=== PATIENT | male | born 1965 | race Caucasian/White ===

== ENCOUNTER 2024-05-27 16:01 | Emergency (ER) | payer OTHER, MEDICAID ==
[~2024-05-27] VITALS: Ht 162.6 cm; Wt 70.0 kg
[2024-05-27 19:16] VITALS: BP 184/90; TEMP 97.2; O2SAT 99
== END 2024-05-27 19:26 | disposition home or self-care (01) ==
LOC: M ED 16:01
DX: Z11.52 Encounter for screening for COVID-19 (principal); B34.1 Enterovirus infection, unspecified

== ENCOUNTER 2024-10-06 11:56 | Emergency (ER) | payer OTHER, MEDICAID ==
[~2024-10-06] VITALS: Ht 170.2 cm; Wt 65.4 kg
[2024-10-06] MEDS: LIDOCAINE 2% 5ML JELLY UROJET TOP ONE (12:52)
[2024-10-06 13:17] LABS: BASO % 0.3 % (0.0-1.0); EOS % 0.2 % (0.0-3.0); HEMATOCRIT 46.1 % (42.0-52.0); HEMOGLOBIN 15.1 g/dl (13.5-17.5); LYMPH # 1.9 10^3/uL (1.5-5.0); LYMPH % 16.6 % (24.0-44.0); MEAN CORPUSCULAR HEMOGLOBIN 29.1 pg (27.0-33.0); MEAN CORPUSCULAR HGB CONC 32.8 g/dl (32.0-36.5); MEAN CORPUSCULAR VOLUME 88.8 fl (80.0-96.0); MONO # 0.6 10^3/uL (0.0-0.8); MONO % 5.1 % (2.0-8.0); NEUTROPHILS % 77.5 % (36.0-66.0); PLATELET COUNT, AUTOMATED 278 10^3/uL (150-450); RED BLOOD COUNT 5.19 10^6/uL (4.30-6.10); WHITE BLOOD COUNT 11.6 10^3/uL (4.0-10.0)
[2024-10-06 13:18] LABS: BLOOD UREA NITROGEN 23 MG/DL (9-23); CALCIUM LEVEL 9.9 MG/DL (8.5-10.1); CARBON DIOXIDE LEVEL 28 MMOL/L (20-31); CHLORIDE LEVEL 106 MMOL/L (98-107); CREATININE FOR GFR 0.92 MG/DL (0.70-1.30); GLOMERULAR FILTRATION RATE > 60.0 (>56); GLUCOSE, FASTING 94 MG/DL (60-100); POTASSIUM SERUM 4.3 MMOL/L (3.5-5.1); SODIUM LEVEL 143 MMOL/L (136-145)
[2024-10-06 13:52] LABS: APPEARANCE, URINE CLEAR (CLEAR); BACTERIA, URINE AUTO NEGATIVE (NEGATIVE); BILIRUBIN, URINE AUTO NEGATIVE (NEGATIVE); BLOOD, URINE BLOOD 1+ (NEGATIVE); COLOR, URINE YELLOW (YELLOW); GLUCOSE, URINE (UA) AUTO NEGATIVE (NEGATIVE); KETONE, URINE AUTO TRACE mg/dL (NEGATIVE); LEUKOCYTE ESTERASE, URINE AUTO NEGATIVE (NEGATIVE); MUCUS, URINE SMALL (NEGATIVE); NITRITE, URINE AUTO NEGATIVE (NEGATIVE); PROTEIN, URINE AUTO NEGATIVE (NEGATIVE); RBC, URINE AUTO 27 /HPF (0-3); SPECIFIC GRAVITY URINE AUTO 1.021 (1.002-1.035); SQUAMOUS EPITHELIAL CELL UR AU 0 /HPF (0-6); UROBILINOGEN, URINE AUTO 0.2 mg/dL (0.0-2.0); WBC, URINE AUTO 2 /HPF (0-3)
[2024-10-06] MEDS ORDERED: FLOM0.4C39 PO (18:14)
[2024-10-06 18:56] VITALS: BP 180/90; TEMP 97.8; O2SAT 99
== END 2024-10-06 18:56 | disposition home or self-care (01) ==
LOC: M ED 11:56
DX: N40.0 Benign prostatic hyperplasia without lower urinary tract symptoms (principal); R33.8 Other retention of urine; F17.210 Nicotine dependence, cigarettes, uncomplicated

== ENCOUNTER 2024-10-11 18:05 | Emergency (ER) | payer OTHER, MEDICAID ==
[~2024-10-11] VITALS: Ht 170.2 cm; Wt 65.7 kg
[~2024-10-11 18:05] MED LIST: FLOM0.4C39 PO
[2024-10-11 18:13] VITALS: TEMP 98.7
[2024-10-11 20:43] LABS: KETONE, URINE AUTO RFX NEGATIVE (NEGATIVE); NITRITE, URINE AUTO RFX NEGATIVE (NEGATIVE); RBC, URINE AUTO RFX 58 /HPF (0-3); SQUAM EPITHELIAL CELL UR AURFX 0 /HPF (0-6); WBC, URINE AUTO RFX 10 /HPF (0-3)
[2024-10-11 20:46] LABS: LEUKOCYTE ESTERASE UR AUTO RFX TRACE (NEGATIVE)
[2024-10-11 23:31] VITALS: BP 195/91; O2SAT 98
[2024-10-11] MEDS: amLODIPine 5 MG TAB PO ONE (23:31)
== END 2024-10-11 23:46 | disposition home or self-care (01) ==
LOC: M ED 18:05
DX: I10 Essential (primary) hypertension (principal); T83.092A Other mechanical complication of nephrostomy catheter, initial encounter; F17.210 Nicotine dependence, cigarettes, uncomplicated

== ENCOUNTER 2024-10-30 22:44 | Emergency (ER) | payer OTHER, MEDICAID ==
[~2024-10-30] VITALS: Ht 175.3 cm; Wt 63.9 kg
[2024-10-31 00:35] LABS: KETONE, URINE AUTO RFX TRACE mg/dL (NEGATIVE); MUCUS, URINE RFX SMALL (NEGATIVE); NITRITE, URINE AUTO RFX NEGATIVE (NEGATIVE); RBC, URINE AUTO RFX 38 /HPF (0-3); SQUAM EPITHELIAL CELL UR AURFX 0 /HPF (0-6); TRANSITIONAL EPITHELIAL AU RFX 1 /HPF
[2024-10-31 00:47] LABS: LEUKOCYTE ESTERASE UR AUTO RFX 2+ (NEGATIVE); WBC, URINE AUTO RFX TNTC /HPF (0-3)
[2024-10-31 02:19] VITALS: BP 179/95; TEMP 98.1; O2SAT 100
== END 2024-10-31 02:20 | disposition home or self-care (01) ==
LOC: M ED 22:44
DX: R33.9 Retention of urine, unspecified (principal); N40.0 Benign prostatic hyperplasia without lower urinary tract symptoms; Z88.1 Allergy status to other antibiotic agents; Z79.899 Other long term (current) drug therapy

== ENCOUNTER 2024-11-01 11:35 | Emergency (ER) | payer OTHER, MEDICAID ==
[~2024-11-01] VITALS: Ht 175.3 cm; Wt 62.4 kg
[2024-11-01 14:15] VITALS: BP 184/98; TEMP 97.3; O2SAT 99
== END 2024-11-01 14:20 | disposition home or self-care (01) ==
LOC: EDBD 11:35 → M ED 11:35
DX: T83.091A Other mechanical complication of indwelling urethral catheter, initial encounter (principal); I10 Essential (primary) hypertension; N40.0 Benign prostatic hyperplasia without lower urinary tract symptoms; Z88.1 Allergy status to other antibiotic agents; Z79.899 Other long term (current) drug therapy

== ENCOUNTER → 2024-12-01 | Outpatient (CLI) | payer OTHER, MEDICAID ==
[2024-12-01 15:52] LABS: HEMATOCRIT 37.4 % (42.0-52.0); HEMOGLOBIN 12.2 g/dl (13.5-17.5); MEAN CORPUSCULAR HEMOGLOBIN 29.2 pg (27.0-33.0); MEAN CORPUSCULAR HGB CONC 32.6 g/dl (32.0-36.5); MEAN CORPUSCULAR VOLUME 89.5 fl (80.0-96.0); PLATELET COUNT, AUTOMATED 257 10^3/uL (150-450); RED BLOOD COUNT 4.18 10^6/uL (4.30-6.10); WHITE BLOOD COUNT 8.8 10^3/uL (4.0-10.0)
[2024-12-01 16:15] LABS: BLOOD UREA NITROGEN 21 MG/DL (9-23); CALCIUM LEVEL 9.4 MG/DL (8.5-10.1); CARBON DIOXIDE LEVEL 27 MMOL/L (20-31); CHLORIDE LEVEL 107 MMOL/L (98-107); CREATININE FOR GFR 1.01 MG/DL (0.70-1.30); GLOMERULAR FILTRATION RATE > 60.0 (>56); GLUCOSE, FASTING 87 MG/DL (60-100); POTASSIUM SERUM 4.1 MMOL/L (3.5-5.1); SODIUM LEVEL 145 MMOL/L (136-145)
== END ==
LOC: M LAB 14:59
PROVIDERS: ATTEND Physician Assistant
DX: Z01.818 Encounter for other preprocedural examination (principal)

== ENCOUNTER 2024-12-03 12:59 | Day surgery (SDC) | payer OTHER, MEDICAID ==
[~2024-12-03] VITALS: Ht 162.6 cm; Wt 60.3 kg
[2024-12-03] MEDS ORDERED: LR 1,000 ML IV SCH (13:35)
[2024-12-03] MEDS ORDERED: propofoL 200 MG/20 ML VIAL As Ordered ONE (14:13)
[2024-12-03] MEDS ORDERED: LIDOCAINE 2% 100MG/5ML SDV (FOR ANES.) As Ordered ONE (14:15)
[2024-12-03] MEDS: ceFAZolin SOD 2 GM IV ONCE IV ONE (15:10)
[2024-12-03 15:35] VITALS: BP 194/89; TEMP 97.9; O2SAT 97
== END 2024-12-03 16:28 | disposition home or self-care (01) ==
LOC: M SDC 12:59
PROVIDERS: ATTEND Urology
DX: N40.1 Benign prostatic hyperplasia with lower urinary tract symptoms (principal); Z88.0 Allergy status to penicillin; Z79.899 Other long term (current) drug therapy; F17.210 Nicotine dependence, cigarettes, uncomplicated
CPT/HCPCS: 52000; A4215; C1769; J0690; J1100

== ENCOUNTER 2024-12-18 18:55 | Emergency (ER) | payer OTHER, MEDICAID ==
[~2024-12-18] VITALS: Ht 162.6 cm; Wt 63.4 kg
[2024-12-18 18:58] VITALS: TEMP 98.5
[2024-12-18 19:38] LABS: HEMATOCRIT 38.2 % (42.0-52.0); HEMOGLOBIN 12.3 g/dl (13.5-17.5); MEAN CORPUSCULAR HEMOGLOBIN 28.9 pg (27.0-33.0); MEAN CORPUSCULAR HGB CONC 32.2 g/dl (32.0-36.5); MEAN CORPUSCULAR VOLUME 89.7 fl (80.0-96.0); PLATELET COUNT, AUTOMATED 247 10^3/uL (150-450); RED BLOOD COUNT 4.26 10^6/uL (4.30-6.10); WHITE BLOOD COUNT 9.2 10^3/uL (4.0-10.0)
[2024-12-18 20:02] LABS: ATYPICAL LYMPH 4 % (0-5); BASOPHILS 5 % (0-1); EOSINOPHILS 2 % (0-3); LYMPHOCYTES 37 % (16-44); MONOCYTES 9 % (0-5); NEUTROPHILS 43 % (28-66)
[2024-12-18 20:03] LABS: PLATELET ESTIMATE NORMAL (NORMAL)
[2024-12-18 20:11] LABS: ALBUMIN 3.1 G/DL (3.2-5.2); ALKALINE PHOSPHATASE 90 U/L (40-129); ALT/SGPT 10 U/L (7.0-40); AST/SGOT < 8 U/L (<34); BILIRUBIN,DIRECT 0.1 MG/DL (<0.4); BILIRUBIN,TOTAL 0.3 MG/DL (0.3-1.2); BLOOD UREA NITROGEN 15 MG/DL (9-23); CALCIUM LEVEL 9.1 MG/DL (8.5-10.1); CARBON DIOXIDE LEVEL 27 MMOL/L (20-31); CHLORIDE LEVEL 110 MMOL/L (98-107); CREATININE FOR GFR 1.05 MG/DL (0.70-1.30); GLOMERULAR FILTRATION RATE 82.3 (>56); GLUCOSE, FASTING 90 MG/DL (60-100); SODIUM LEVEL 147 MMOL/L (136-145); TOTAL PROTEIN 6.4 G/DL (5.7-8.2)
[2024-12-18] MEDS: LABETALOL 100MG/20ML VIAL IV STA (21:21)
[2024-12-18 21:40] VITALS: O2SAT 99
[2024-12-18] MEDS ORDERED: ATEN25TA PO (22:17)
[2024-12-18] MEDS ORDERED: BLOOKIT XX (22:18)
[2024-12-18 22:34] VITALS: BP 168/80
== END 2024-12-18 22:37 | disposition home or self-care (01) ==
LOC: M ED 18:55
DX: I10 Essential (primary) hypertension (principal); I25.2 Old myocardial infarction; N40.0 Benign prostatic hyperplasia without lower urinary tract symptoms; F17.210 Nicotine dependence, cigarettes, uncomplicated; Z88.1 Allergy status to other antibiotic agents; Z79.899 Other long term (current) drug therapy
CPT/HCPCS: 80048; 80076; 85025; 93005; 96374; 99284; J1920

== ENCOUNTER → 2024-12-28 | Outpatient (REF) | payer OTHER, MEDICAID, MEDICARE ==
[~2024-12-28] MED LIST changes: +ATEN25TA PO; +BLOOKIT XX
[2024-12-28 18:42] LABS: HEMOGLOBIN A1c 5.5 % (4.0-6.0)
[2024-12-28 18:55] LABS: ALBUMIN 3.4 G/DL (3.2-5.2); ALKALINE PHOSPHATASE 94 U/L (40-129); ALT/SGPT 10 U/L (7.0-40); AST/SGOT < 8 U/L (<34); BILIRUBIN,TOTAL 0.4 MG/DL (0.3-1.2); BLOOD UREA NITROGEN 16 MG/DL (9-23); CALCIUM LEVEL 9.3 MG/DL (8.5-10.1); CARBON DIOXIDE LEVEL 27 MMOL/L (20-31); CHLORIDE LEVEL 109 MMOL/L (98-107); CHOLESTEROL LEVEL 180 MG/DL (<200); CHOLESTEROL RISK RATIO 3.55 (<5); CREATININE FOR GFR 0.96 MG/DL (0.70-1.30); GLOMERULAR FILTRATION RATE > 90.0 (>56); GLUCOSE, FASTING 91 MG/DL (60-100); HDL CHOLESTEROL 50.7 MG/DL (>40); LDL CHOLESTEROL 111.9 MG/DL (<100); NON-HDL-C 129.3 MG/DL; POTASSIUM SERUM 4.4 MMOL/L (3.5-5.1); SODIUM LEVEL 144 MMOL/L (136-145); TOTAL PROTEIN 6.8 G/DL (5.7-8.2); TRIGLYCERIDES LEVEL 87 MG/DL (<150)
== END ==
LOC: M LAB REF 17:14
PROVIDERS: ATTEND Student in an Organized Health Care Education/Training Program
DX: Z00.01 Encounter for general adult medical examination with abnormal findings (principal); Z79.899 Other long term (current) drug therapy

== ENCOUNTER 2025-01-22 14:17 | Emergency (ER) | payer OTHER, MEDICAID ==
[~2025-01-22] VITALS: Ht 162.6 cm; Wt 62.4 kg
[~2025-01-22 14:17] MED LIST changes: -FLOM0.4C39 PO; +TAMS-18 PO
[2025-01-22] MEDS ORDERED: OXYB5TAB14 (14:32)
[2025-01-22] MEDS ORDERED: ATOR40TA75 (14:32)
[2025-01-22] MEDS ORDERED: LOSA100T46 PO (14:32)
[2025-01-22] MEDS: LIDOCAINE 2% 5ML JELLY UROJET TOP ONE (15:18)
[2025-01-22 15:48] LABS: KETONE, URINE AUTO RFX TRACE mg/dL (NEGATIVE); LEUKOCYTE ESTERASE UR AUTO RFX 1+ (NEGATIVE); MUCUS, URINE RFX SMALL (NEGATIVE); NITRITE, URINE AUTO RFX NEGATIVE (NEGATIVE); RBC, URINE AUTO RFX TNTC /HPF (0-3); SQUAM EPITHELIAL CELL UR AURFX 0 /HPF (0-6); WBC, URINE AUTO RFX 33 /HPF (0-3)
[2025-01-22] MEDS ORDERED: CIPR500T39 PO (18:17)
[2025-01-22 18:32] VITALS: BP 173/88; TEMP 98.7; O2SAT 98
== END 2025-01-22 18:45 | disposition home or self-care (01) ==
LOC: M ED 14:17
DX: N30.00 Acute cystitis without hematuria (principal); T83.091A Other mechanical complication of indwelling urethral catheter, initial encounter; I10 Essential (primary) hypertension; E78.5 Hyperlipidemia, unspecified; F17.210 Nicotine dependence, cigarettes, uncomplicated; Z88.1 Allergy status to other antibiotic agents; Z79.2 Long term (current) use of antibiotics; Z79.899 Other long term (current) drug therapy

== ENCOUNTER 2025-03-08 10:59 | Day surgery (SDC) | payer OTHER, MEDICAID ==
[~2025-03-08] VITALS: Ht 162.6 cm; Wt 60.0 kg
[~2025-03-08 10:59] MED LIST changes: +AMLO1TAB24 PO; +ATOR40TA75 PO; +CIPR500T39 PO; +LEVO1TAB40 PO; +LOSA100T46 PO; +LOSA50TA28 PO; +OXYB5TAB14 PO; +TAMS1CAP17 PO
[2025-03-08] MEDS ORDERED: LR 1,000 ML IV SCH (11:25)
[2025-03-08] MEDS ORDERED: MIDAZOLAM INJ 2 MG/2 ML VIAL As Ordered ONE (12:02)
[2025-03-08] MEDS ORDERED: LIDOCAINE 2% 100 MG/5 ML SDV (FOR ANES.) As Ordered ONE (12:03)
[2025-03-08] MEDS ORDERED: fentaNYL 100 MCG/2 ML INJECTION As Ordered ONE (12:03)
[2025-03-08] MEDS ORDERED: propofoL 200 MG/20 ML VIAL As Ordered ONE (12:08)
[2025-03-08] MEDS ORDERED: ONDANSETRON 4MG 2ML VIAL As Ordered ONE (12:09)
[2025-03-08] MEDS ORDERED: ACETAMINOPHEN 1000MG/100ML IV BAG As Ordered ONE (12:09)
[2025-03-08] MEDS ORDERED: dexAMETHasone 4 MG/ML 1 ML VIAL As Ordered ONE (12:09)
[2025-03-08] MEDS ORDERED: LORA1TAB23 PO (12:23)
[2025-03-08] MEDS: ceFAZolin SOD 2 GM IV ONCE IV ONE (12:32)
[2025-03-08] MEDS ORDERED: ePHEDrine SULFATE 25 MG/5 ML SYRINGE As Ordered ONE (13:28)
[2025-03-08] MEDS ORDERED: HYDROMORPHONE HCL 0.5 MG/0.5 ML SYRINGE IV PRN (13:40)
[2025-03-08] MEDS ORDERED: ONDANSETRON 4MG 2ML VIAL IV PRN (13:40)
[2025-03-08] MEDS ORDERED: fentaNYL 100 MCG/2 ML INJECTION IV PRN (13:40)
[2025-03-08] MEDS ORDERED: oxyCODONE 5MG TAB PO PRN (13:40)
[2025-03-08] MEDS ORDERED: MACR100C43 PO (13:40)
[2025-03-08 14:20] VITALS: BP 158/80; TEMP 97.8; O2SAT 99
[2025-03-08] MEDS ORDERED: TAMS1CAP17 (17:12)
== END 2025-03-08 14:46 | disposition home or self-care (01) ==
LOC: M SDC 10:59
PROVIDERS: ATTEND Urology
DX: N41.8 Other inflammatory diseases of prostate (principal); N42.89 Other specified disorders of prostate; N40.3 Nodular prostate with lower urinary tract symptoms; G47.9 Sleep disorder, unspecified; Z88.0 Allergy status to penicillin; Z79.899 Other long term (current) drug therapy; F17.210 Nicotine dependence, cigarettes, uncomplicated

== ENCOUNTER 2025-03-08 16:59 | Emergency (ER) | payer OTHER, MEDICAID ==
[~2025-03-08] VITALS: Ht 162.6 cm; Wt 60.5 kg
[~2025-03-08 16:59] MED LIST changes: +LORA1TAB23 PO; +MACR100C43 PO
[2025-03-08] MEDS ORDERED: TAMS1CAP17 (17:12)
[2025-03-08 21:00] LABS: KETONE, URINE MANUAL REFLEX 1+ mg/dL (NEGATIVE); PROTEIN, URINE MANUAL REFLEX 3+ mg/dL (NEGATIVE); SP GRAVITY,URINE MANUAL REFLEX 1.020 (1.002-1.035); UROBILINOGEN, UA MANUAL REFLEX NORMAL (NORMAL)
[2025-03-08 21:01] LABS: NITRITE, URINE MANUAL RFX NEGATIVE (NEGATIVE)
[2025-03-08 21:04] LABS: HYALINE CAST, URINE RFX NONE SEEN /lpf (0-1); RBC, URINE MAN REFLEX TNTC /hpf (0-3); SQUAMOUS EPITHELIAL URINE RFX NONE SEEN /hpf (SMALL AMT)
[2025-03-08 21:05] LABS: MICROSCOPIC EXAM RFX PERFORMED
[2025-03-08 21:08] LABS: BASO # 0.1 10^3/uL (0.0-0.2); BASO % 0.3 % (0.0-1.0); EOS # 0.1 10^3/uL (0.0-0.5); EOS % 0.6 % (0.0-3.0); LYMPH # 1.8 10^3/uL (1.5-5.0); LYMPH % 12.8 % (24.0-44.0); MONO # 0.5 10^3/uL (0.0-0.8); MONO % 3.7 % (2.0-8.0); NEUTROPHILS # 11.8 10^3/uL (1.5-8.5); NEUTROPHILS % 82.2 % (36.0-66.0); PLATELET COUNT, AUTOMATED 217 10^3/uL (150-450)
[2025-03-08 21:21] LABS: INR 0.99
[2025-03-08] MEDS: NS 500 ML IV ONE (21:35)
[2025-03-08 21:46] LABS: ALT/SGPT 12 U/L (7.0-40); AST/SGOT 15 U/L (<34); CALCIUM LEVEL 8.9 MG/DL (8.5-10.1); CARBON DIOXIDE LEVEL 26 MMOL/L (20-31); CHLORIDE LEVEL 105 MMOL/L (98-107); CREATININE FOR GFR 0.91 MG/DL (0.70-1.30); GLOMERULAR FILTRATION RATE > 90.0 (>56); POTASSIUM SERUM 4.3 MMOL/L (3.5-5.1); SODIUM LEVEL 144 MMOL/L (136-145)
[2025-03-08] MEDS ORDERED: SODIUM CHLORIDE IV ONE (22:00)
[2025-03-08 22:26] LABS: CK-MB VALUE MASS 1.2 NG/ML (<3.6)
[2025-03-08 22:27] LABS: CPK CREATINE PHOSPHOKINASE 57 U/L (46-171); MB/CK RELATIVE INDEX 2.10 (< OR =4)
[2025-03-08] MEDS: [UNRECOGNIZED DRUG - OTHER] IV ONE (22:35)
[2025-03-08] MEDS: NS 0.9% IV ONE (22:35)
[2025-03-08 22:56] LABS: CPK CREATINE PHOSPHOKINASE 49.0 U/L (46-171)
[2025-03-08 22:57] LABS: CK-MB VALUE MASS 1.1 NG/ML (<3.6); MB/CK RELATIVE INDEX 2.24 (< OR =4)
[2025-03-09 01:30] VITALS: BP 142/78; O2SAT 99
[2025-03-09 01:44] VITALS: TEMP 99.2
== END 2025-03-09 02:00 | disposition home or self-care (01) ==
LOC: EDBD 16:59 → M ED 16:59
DX: R55 Syncope and collapse (principal); B34.9 Viral infection, unspecified; I10 Essential (primary) hypertension; E78.5 Hyperlipidemia, unspecified; F17.210 Nicotine dependence, cigarettes, uncomplicated; Z88.1 Allergy status to other antibiotic agents; Z79.899 Other long term (current) drug therapy; N41.8 Other inflammatory diseases of prostate; N42.89 Other specified disorders of prostate; N40.3 Nodular prostate with lower urinary tract symptoms; G47.9 Sleep disorder, unspecified; Z88.0 Allergy status to penicillin
CPT/HCPCS: 36415; 71045; 80048; 80076; 81000; 81015; 82150; 82550; 82553; 83605; 83690; 83880; 84443; 84484; 85025; 85610; 85730; 87086; 88305; 93005; 93041; 94760; 96360; 96361; 99285; J0131; J0690; J1100; J2250; J2405; J3010

== ENCOUNTER → 2025-06-25 | Outpatient (REF) | payer OTHER, MEDICAID ==
[~2025-06-25] MED LIST changes: +TAMS1CAP17
[2025-06-25 15:37] LABS: CREATININE, URINE 86.9 MG/DL; MALB URINE SIEMENS 55.0 MG/L; MAU/CREAT RATIO 63.2 MCG/MG (0.0-30.0)
[2025-06-25 15:38] LABS: ALT/SGPT 21 U/L (7.0-40); AST/SGOT 16 U/L (<34); CALCIUM LEVEL 9.6 MG/DL (8.5-10.1); CARBON DIOXIDE LEVEL 28 MMOL/L (20-31); CHLORIDE LEVEL 106 MMOL/L (98-107); CREATININE FOR GFR 0.94 MG/DL (0.70-1.30); GLOMERULAR FILTRATION RATE > 90.0 (>56); POTASSIUM SERUM 4.7 MMOL/L (3.5-5.1); SODIUM LEVEL 142 MMOL/L (136-145)
== END ==
LOC: M LAB REF 14:14
PROVIDERS: ATTEND Student in an Organized Health Care Education/Training Program
DX: I10 Essential (primary) hypertension (principal)